=== PATIENT | male | born 1965 | race Caucasian/White ===

== ENCOUNTER 2016-12-29 10:24 | Day surgery (SDC) | payer OTHER ==
[2016-12-26 18:29] VITALS: BMI 27.6
[~2016-12-29] VITALS: Ht 172.7 cm; Wt 77.1 kg
[2016-12-29] VITALS (10 sets, daily range): BP systolic 91–136; BP diastolic 54–84; PULSE 44–69; RESP 13–22; Ht 172.7 cm; Wt 77.1 kg
[2016-12-29] MEDS ORDERED: SOD CHLORIDE 0.9% 1,000 ML IV ONE (11:30)
[2016-12-29] MEDS ORDERED: CEFAZOLIN 2 GM/50 ML (PMX) 50 ML IVPB ONE (11:30)
[2016-12-29] MEDS ORDERED: ATOR20TA38 PO (11:31)
[2016-12-29] MEDS ORDERED: ASPI-664 PO (11:32)
[2016-12-29] MEDS ORDERED: MELO-110 PO (11:32)
[2016-12-29] MEDS ORDERED: CHOL100062 PO (11:33)
[2016-12-29] MEDS ORDERED: PROPOFOL 0 ML ONE (13:44)
[2016-12-29] MEDS ORDERED: CEFAZOLIN 1 GM INJ ONE (13:44)
[2016-12-29] MEDS ORDERED: NEOSTIGMINE 3 MG/3 ML SYRINGE ONE (13:44)
[2016-12-29] MEDS ORDERED: ROCURONIUM 50 MG INJ ONE (13:44)
[2016-12-29] MEDS ORDERED: GLYCOPYRROLATE 0.4 MG INJ ONE (13:44)
[2016-12-29] MEDS ORDERED: MIDAZOLAM 1 MG/ML 2 ML INJ ONE (13:45)
[2016-12-29] MEDS ORDERED: DEXAMETHASONE 4 MG/ML 1 ML INJ ONE (13:45)
[2016-12-29] MEDS ORDERED: FENTAnyl 50 MCG/ML VIAL ONE ×2 (13:45→14:47)
[2016-12-29] MEDS ORDERED: ONDANSETRON 4 MG INJ ONE (13:45)
--- NOTE | 2016-12-29 14:33 | HPN ---
Date/Time of Note Date/Time of Note DATE: 12/29/16 TIME: 14:32 Interval H&P Admission Note Pt. seen H&P reviewed: No system changes VALDO BREWER MD Dec 29, 2016 14:33
[2016-12-29] MEDS ORDERED: BUPIVACAINE 0.5% (SDV) 30 ML INJ ONE (14:46)
[2016-12-29] MEDS ORDERED: LIDOCAINE 1% (MPF) 30 ML INJ ONE (14:46)
[2016-12-29] MEDS ORDERED: KETOROLAC 30 MG INJ ONE (14:48)
[2016-12-29] MEDS ORDERED: BUPIVACAINE 0.25% (STERILE-PAK) 30 ML INJ INJ ONE (14:59)
[2016-12-29] MEDS ORDERED: LIDOCAINE 2% (MDV) 20 ML INJ INJ ONE (15:00)
[2016-12-29] MEDS ORDERED: KETOROLAC 30 MG INJ IV PRN (15:30)
[2016-12-29] MEDS ORDERED: LABETALOL HCL 20MG INJ IV PRN (15:30)
[2016-12-29] MEDS ORDERED: hydrALAzine 20 MG INJ IV PRN (15:30)
[2016-12-29] MEDS ORDERED: MIDAZOLAM 1 MG/ML 2 ML INJ IV PRN (15:30)
[2016-12-29] MEDS ORDERED: FENTAnyl 50 MCG/ML VIAL IV PRN ×3 (15:30)
[2016-12-29] MEDS ORDERED: morphine 2 MG INJ IV PRN (15:30)
[2016-12-29] MEDS ORDERED: TRIMETHOBENZAMIDE 100 MG/ML VIAL IM PRN (15:30)
[2016-12-29] MEDS ORDERED: EPHEDrine SULFATE 50 MG/5 ML SYG IV PRN (15:30)
[2016-12-29] MEDS ORDERED: ONDANSETRON 4 MG INJ IV PRN ×2 (15:30)
[2016-12-29] MEDS ORDERED: HYDROmorphONE (0.2 MG/ML) 10ML SYG IV PRN ×3 (15:30)
[2016-12-29] MEDS ORDERED: MEPERIDINE 25 MG INJ IV PRN (15:30)
[2016-12-29] MEDS ORDERED: DIPHENHYDRAMINE 50 MG INJ IV PRN (15:30)
[2016-12-29] MEDS ORDERED: IBUPROFEN 600 MG TAB PO PRN (15:30)
--- NOTE | 2016-12-29 15:31 | OPR ---
Date/Time of Note Date/Time of Note DATE: 12/29/16 TIME: 15:26 Operative Report Procedure Date: Dec 29, 2016 Preoperative Diagnosis Soft tissue mass of back Postoperative Diagnosis Soft tissue mass of back. Subfascial. 8 cm x 6 cm Operation Performed 1. Excision soft tissue mass of back, subfascial, 8 cm x 6 cm 2. Local tissue advancement Surgeon: VALDO BREWER MD Anesthesia: MAC Anesthesiologist: Vernon Ritter M.D. Estimated Blood Loss: minimal Specimens Soft tissue mass of back Complications: None Pt Condition Post Procedure: stable Disposition: PACU Indications The patient is a 51-year-old male who presented to the office complaining of a large soft tissue mass of the back. This is been associated with growth and discomfort. He was scheduled for elective excision for definitive pathological diagnosis and symptomatic relief. All her some enemas of the procedure including, but not limited to: Wound infection, excessive bleeding, postoperative seroma/hematoma formation, mass recurrence, etc. were all excised into the patient in full detail. He fully understood and wished to proceed with the procedure. Informed consent was obtained. Operative\Procedure Findings Subfascial soft tissue mass of the back consistent with lipoma. 8 cm x 6 cm Procedure Description The patient was brought to the operating room and placed in the right lateral decubitus position with the left side up. The mass was preoperatively marked and confirmed with the patient in the holding area. Bilateral sequential compression devices were placed on both lower extremities. A dose of broad- spectrum perioperative intravenous antibiotics was given. After the induction of adequate sedation, the patient's back was prepped and draped in standard surgical fashion. After performance of the surgical timeout a mixture of 2% lidocaine and 0.25% Marcaine was injected around the area of the mass in a radial fashion creating a block. Incision was then made over the mass using a 15 blade scalpel. Incision was carried down through the skin and subcutaneous tissues using Bovie electrocautery. The fascia was identified and incised. A subfascial lipomatous mass was identified. Was dissected free of surrounding tissues using, nation of blunt dissection and Bovie electrocautery. The mass was then transected at its base and passed off the field as specimen. It measured approximately 8 cm x 6 cm. The wound cavity was then inspected. Hemostasis noted to be adequate. Cavity was irrigated with warm normal saline and the irrigant returned clear. At this point local tissue advancement flap was created to be able to close the wound without tension. The fascia was then approximated using running 2-0 Vicryl suture. The wound was then closed in layers using interrupted 3-0 Vicryl sutures for the dermal layer. The skin was reapproximated using 4-0 Monocryl suture in running subcuticular fashion. Further local anesthesia was applied around the incision. Incision was cleaned and Dermabond was applied. The patient was then transported to the recovery room in stable condition. All counts were correct at the end of the case 2 VALDO BREWER MD Dec 29, 2016 15:31
== END 2016-12-29 17:14 | disposition home or self-care (01) ==
LOC: SDS 10:24
PROVIDERS: ATTEND Surgery
DX: D17.1 Benign lipomatous neoplasm of skin and subcutaneous tissue of trunk (principal); I10 Essential (primary) hypertension; E78.5 Hyperlipidemia, unspecified
CPT/HCPCS: 14000; 88307; J0690; J1100; J1885; J2250; J2405; J3010; Z7512; Z7610; J2710